=== PATIENT | female | born 1970 | race Caucasian/White ===

== ENCOUNTER → 2019-07-31 | Outpatient (CLI) | payer BC | END | disposition home or self-care (01) | LOC: US 07:50 | PROVIDERS: ATTEND Family Medicine | DX: K76.0 Fatty (change of) liver, not elsewhere classified (principal) | CPT/HCPCS: 76700 ==

== ENCOUNTER → 2019-08-04 | Outpatient (CLI) | payer BC ==
[2019-08-04 08:52] LABS: BASOPHILS % 0.6 % (0.0-2.0); EOSINOPHILS % 1.5 % (0.0-5.0); HEMATOCRIT. 43.2 % (36.0-48.0); HEMOGLOBIN. 14.6 g/dL (12.0-16.0); LYMPHOCYTES % 24.9 % (20.0-50.0); MEAN CORPUSCULAR HEMOGLOBIN 29.2 pg (28.0-32.0); MEAN CORPUSCULAR VOLUME 86.5 fL (81.0-99.0); MEAN PLATELET VOLUME 8.8 fl (7.4-10.4); MONOCYTES % 5.3 % (2.0-8.0); NEUTROPHILS % 67.7 % (40.0-76.0); PLATELET 265 x1000/uL (130-400); RED CELL DISTRIBUTION WIDTH 13.5 % (11.6-14.6)
[2019-08-04 09:09] LABS: CHLORIDE 107 mEq/L (98-107)
[2019-08-04 09:13] LABS: GAMMA GLUTAMYL TRANSPEPTIDASE 32 IU/L (7-32)
[2019-08-04 09:14] LABS: AMYLASE 60 IU/L (25-115)
[2019-08-04 09:16] LABS: LDL CHOLESTEROL 131 mg/dL (5-100)
[2019-08-04 09:17] LABS: HDL CHOLESTEROL 43 mg/dL (40-59)
[2019-08-04 09:19] LABS: T4 FREE 0.99 ng/dL (0.76-1.46)
[2019-08-04 09:32] LABS: FOLIC ACID (FOLATE) SERUM 16.2 ng/mL (>5.38)
== END | disposition home or self-care (01) ==
LOC: LAB 08:28
PROVIDERS: ATTEND Family Medicine
DX: E78.5 Hyperlipidemia, unspecified (principal); R10.10 Upper abdominal pain, unspecified; R53.83 Other fatigue; E55.9 Vitamin D deficiency, unspecified
CPT/HCPCS: 36415; 80053; 80061; 82150; 82306; 82607; 82746; 82977; 83036; 84439; 84443; 84481; 85025

== ENCOUNTER → 2019-10-01 | Outpatient (CLI) | payer BC ==
[2019-10-01 11:45] LABS: VITAMIN B12 SERUM 547 pg/mL (211-911)
[2019-10-03 09:09] LABS: HBSAG SCREEN Negative (Negative); HEPATITIS A ANTIBODY TOTAL Positive (Negative); VITAMIN D 25-OH 26.5 ng/mL (30.0-100.0)
[2019-10-03 15:09] LABS: ANTI-NUCLEAR ANTIBODIES DIRECT Negative (Negative)
[2019-10-05 18:11] LABS: HEPATITIS B SURFACE AB < 3.1 mIU/mL
== END | disposition home or self-care (01) ==
LOC: LAB 08:47
PROVIDERS: ATTEND Internal Medicine Gastroenterology
DX: K21.9 Gastro-esophageal reflux disease without esophagitis (principal)
CPT/HCPCS: 36415; 82306; 82607; 82947; 86038; 86301; 86706; 86708; 86803; 87340

== ENCOUNTER → 2021-05-12 | Outpatient (CLI) | payer BC ==
[2021-05-12 10:14] LABS: BASOPHILS % 0.7 % (0.0-2.0); EOSINOPHILS % 2.4 % (0.0-5.0); HEMATOCRIT. 44.7 % (36.0-48.0); HEMOGLOBIN. 14.7 g/dL (12.0-16.0); MEAN CORPUSCULAR VOLUME 85.2 fL (81.0-99.0); MEAN PLATELET VOLUME 9.2 fl (7.4-10.4); MONOCYTES % 5.6 % (2.0-8.0); NEUTROPHILS % 63.3 % (40.0-76.0); PLATELET 243 x1000/uL (130-400); RED BLOOD CELL COUNT 5.25 mill/uL (4.2-5.4); RED CELL DISTRIBUTION WIDTH 13.3 % (11.6-14.6)
[2021-05-12 10:16] LABS: CLARITY URINE CLEAR (CLEAR); COLOR URINE YELLOW (YELLOW); KETONES URINE NEGATIVE (NEGATIVE); LEUKOCYTE ESTERASE URINE TRACE (NEGATIVE); NITRITE URINE NEGATIVE (NEGATIVE); OCCULT BLOOD URINE 1+ (NEGATIVE); PROTEIN URINE NEGATIVE (NEGATIVE); UROBILINOGEN URINE 0.2 E.U./dL (0.2-1.0)
[2021-05-12 10:29] LABS: CHLORIDE 105 mEq/L (98-107)
[2021-05-12 10:36] LABS: LDL CHOLESTEROL 133 mg/dL (5-100)
[2021-05-12 10:38] LABS: HDL CHOLESTEROL 47 mg/dL (40-59); T4 FREE 0.93 ng/dL (0.76-1.46)
[2021-05-12 10:55] LABS: VITAMIN B12 SERUM 562 pg/mL (211-911)
[2021-05-13 04:07] LABS: VITAMIN D 25-OH 17.8 ng/mL (30.0-100.0)
== END | disposition home or self-care (01) ==
LOC: LAB 09:40
PROVIDERS: ATTEND Family Medicine
DX: Z00.00 Encounter for general adult medical examination without abnormal findings (principal)
CPT/HCPCS: 36415; 80053; 80061; 81003; 82306; 82607; 83036; 84439; 84443; 84481; 85025; 86376

== ENCOUNTER → 2021-05-23 | Outpatient (CLI) | payer BC | END | disposition home or self-care (01) | LOC: RAD 13:11 | PROVIDERS: ATTEND Family Medicine | DX: M54.2 Cervicalgia (principal); M47.812 Spondylosis without myelopathy or radiculopathy, cervical region | CPT/HCPCS: 72040 ==

== ENCOUNTER → 2021-06-21 | Outpatient (CLI) | payer BC | END | disposition home or self-care (01) | LOC: MAMMO 12:37 | PROVIDERS: ATTEND Family Medicine | DX: Z12.31 Encounter for screening mammogram for malignant neoplasm of breast (principal); N63.0 Unspecified lump in unspecified breast | CPT/HCPCS: 77067 ==

== ENCOUNTER → 2021-12-06 | Outpatient (CLI) | payer BC ==
[2021-12-06 11:31] LABS: CHLORIDE 105 mEq/L (98-107)
[2021-12-06 11:38] LABS: AMYLASE 56 IU/L (25-115); GAMMA GLUTAMYL TRANSPEPTIDASE 29 IU/L (7-32)
[2021-12-06 11:50] LABS: HEPATITIS B SURFACE AB < 3.1 mIU/mL
[2021-12-06 12:00] LABS: HEPATITIS B SURFACE ANTIGEN NEGATIVE
[2021-12-07 04:09] LABS: HEPATITIS A ANTIBODY TOTAL Positive (Negative); VITAMIN D 25-OH 33.2 ng/mL (30.0-100.0)
== END | disposition home or self-care (01) ==
LOC: LAB 09:45
PROVIDERS: ATTEND Internal Medicine Gastroenterology
DX: K21.9 Gastro-esophageal reflux disease without esophagitis (principal)
CPT/HCPCS: 36415; 80053; 82150; 82306; 82977; 83036; 86706; 86708; 86803; 87340

== ENCOUNTER → 2021-12-06 | Outpatient (CLI) | payer BC | END | disposition home or self-care (01) | LOC: RAD 09:57 | PROVIDERS: ATTEND Family Medicine | DX: R76.11 Nonspecific reaction to tuberculin skin test without active tuberculosis (principal) | CPT/HCPCS: 71046 ==

== ENCOUNTER → 2022-02-01 | Outpatient (CLI) | payer BC | END | disposition home or self-care (01) | LOC: US 08:36 | PROVIDERS: ATTEND Internal Medicine Gastroenterology | DX: R16.0 Hepatomegaly, not elsewhere classified (principal); R79.89 Other specified abnormal findings of blood chemistry; K76.0 Fatty (change of) liver, not elsewhere classified | CPT/HCPCS: 76700 ==

== ENCOUNTER → 2023-04-18 | Outpatient (CLI) | payer BC ==
[2023-04-18 08:52] LABS: BASOPHILS % 0.4 % (0.0-2.0); EOSINOPHILS % 1.6 % (0.0-5.0); HEMATOCRIT. 44.5 % (36.0-48.0); HEMOGLOBIN. 14.7 g/dL (12.0-16.0); LYMPHOCYTES % 25.6 % (20.0-50.0); MEAN CORPUSCULAR HEMOGLOBIN 28.3 pg (28.0-32.0); MEAN CORPUSCULAR HGB CONC 33.2 g/dL (31.0-37.0); MEAN CORPUSCULAR VOLUME 85.5 fL (81.0-99.0); MEAN PLATELET VOLUME 9.3 fl (7.4-10.4); MONOCYTES % 6.6 % (2.0-8.0); NEUTROPHILS % 65.8 % (40.0-76.0); PLATELET 262 x1000/uL (130-400); RED CELL DISTRIBUTION WIDTH 14.4 % (11.6-14.6); WHITE BLOOD COUNT 8.8 x1000/uL (4.5-11.0)
[2023-04-18 11:36] LABS: ALANINE AMINOTRANSFERASE 50 IU/L (10-49); ALBUMIN 4.5 g/dL (3.2-4.8); ASPARTATE AMINOTRANSFERASE 55 IU/L (<34); BILIRUBIN TOTAL 0.8 mg/dL (0.1-1.0); CALCIUM 9.6 mg/dL (8.7-10.4); CARBON DIOXIDE 20 mEq/L (21-32); CHLORIDE 105 mEq/L (98-107); CHOLESTEROL 173 mg/dL (<200); CREATININE 0.8 mg/dL (0.6-1.0); GLUCOSE 117 mg/dL (70-105); HDL CHOLESTEROL 36 mg/dL (>65); LDL CHOLESTEROL 146 mg/dL (5-100); PROTEIN TOTAL 8.1 g/dL (6.0-8.3); SODIUM 137 mEq/L (136-145); T4 FREE 1.04 ng/dL (0.89-1.76); THYROID STIMULATING HORMONE 2.16 uIU/mL (0.55-4.78); TRIGLYCERIDE 169 mg/dL (0-150); UREA NITROGEN BLOOD 10 mg/dL (9-23)
[2023-04-18 12:14] LABS: CLARITY URINE CLOUDY (CLEAR); COLOR URINE YELLOW (YELLOW); GLUCOSE URINE NEGATIVE (NEGATIVE); KETONES URINE NEGATIVE (NEGATIVE); LEUKOCYTE ESTERASE URINE 1+ (NEGATIVE); NITRITE URINE NEGATIVE (NEGATIVE); OCCULT BLOOD URINE NEGATIVE (NEGATIVE); PH URINE 6.5 (4.5-8.0); PROTEIN URINE NEGATIVE (NEGATIVE); SPECIFIC GRAVITY URINE 1.021 (1.005-1.030); UROBILINOGEN URINE 0.2 E.U./dL (0.2-1.0)
[2023-04-18 13:33] LABS: MUCUS URINE 2+ /lpf (< = 2+); SQUAMOUS EPITHELIAL CELL URINE 2+ /lpf (RARE/1+)
[2023-04-18 13:35] LABS: BACTERIA URINE 3+; RBC URINE NONE SEEN /hpf (0-2)
== END | disposition home or self-care (01) ==
LOC: LAB 07:48
PROVIDERS: ATTEND Internal Medicine Nephrology
DX: Z00.01 Encounter for general adult medical examination with abnormal findings (principal); I10 Essential (primary) hypertension; E55.9 Vitamin D deficiency, unspecified; D64.9 Anemia, unspecified; E03.9 Hypothyroidism, unspecified; E66.01 Morbid (severe) obesity due to excess calories; E11.29 Type 2 diabetes mellitus with other diabetic kidney complication; E78.00 Pure hypercholesterolemia, unspecified
CPT/HCPCS: 36415; 80053; 80061; 81003; 82306; 82570; 83036; 84156; 84439; 84443; 85025

== ENCOUNTER → 2023-07-04 | Outpatient (CLI) | payer BC | END | disposition home or self-care (01) | LOC: US 13:51 | PROVIDERS: ATTEND Obstetrics & Gynecology Obstetrics | DX: D25.9 Leiomyoma of uterus, unspecified (principal); N85.2 Hypertrophy of uterus | CPT/HCPCS: 76830; 76856 ==

== ENCOUNTER → 2023-07-04 | Outpatient (CLI) | payer BC | END | disposition home or self-care (01) | LOC: MAMMO 12:51 | PROVIDERS: ATTEND Internal Medicine Nephrology | DX: Z12.31 Encounter for screening mammogram for malignant neoplasm of breast (principal) | CPT/HCPCS: 77063; 77067 ==

== ENCOUNTER → 2023-08-13 | Outpatient (CLI) | payer BC | END | disposition home or self-care (01) | LOC: US 16:29 | PROVIDERS: ATTEND Obstetrics & Gynecology Obstetrics | DX: D25.9 Leiomyoma of uterus, unspecified (principal); N84.0 Polyp of corpus uteri | CPT/HCPCS: 76830; 76856; Z7610 ==

== ENCOUNTER → 2023-09-11 | Outpatient (CLI) | payer BC ==
[2023-09-11 11:32] LABS: CLARITY URINE CLOUDY (CLEAR); COLOR URINE YELLOW (YELLOW); GLUCOSE URINE NEGATIVE (NEGATIVE); KETONES URINE NEGATIVE (NEGATIVE); LEUKOCYTE ESTERASE URINE 2+ (NEGATIVE); NITRITE URINE NEGATIVE (NEGATIVE); OCCULT BLOOD URINE NEGATIVE (NEGATIVE); PH URINE 6.5 (4.5-8.0); PROTEIN URINE TRACE (NEGATIVE); SPECIFIC GRAVITY URINE 1.024 (1.005-1.030)
[2023-09-11 11:38] LABS: BASOPHILS % 0.8 % (0.0-2.0); EOSINOPHILS % 2.5 % (0.0-5.0); HEMATOCRIT. 42.7 % (36.0-48.0); HEMOGLOBIN. 14.1 g/dL (12.0-16.0); MEAN CORPUSCULAR HEMOGLOBIN 28.2 pg (28.0-32.0); MEAN CORPUSCULAR HGB CONC 33.1 g/dL (31.0-37.0); MEAN CORPUSCULAR VOLUME 85.2 fL (81.0-99.0); MEAN PLATELET VOLUME 9.2 fl (7.4-10.4); NEUTROPHILS % 63.7 % (40.0-76.0); PLATELET 255 x1000/uL (130-400); RED BLOOD CELL COUNT 5.01 mill/uL (4.2-5.4); RED CELL DISTRIBUTION WIDTH 14.3 % (11.6-14.6); WHITE BLOOD COUNT 7.9 x1000/uL (4.5-11.0)
[2023-09-11 11:46] LABS: CHLORIDE 107 mEq/L (98-107); POTASSIUM 3.8 mEq/L (3.5-5.1); SODIUM 138 mEq/L (136-145)
[2023-09-11 11:47] LABS: CALCIUM 9.1 mg/dL (8.7-10.4); CARBON DIOXIDE 23 mEq/L (21-32)
[2023-09-11 11:51] LABS: SQUAMOUS EPITHELIAL CELL URINE 2+ /lpf (RARE/1+)
[2023-09-11 11:52] LABS: CREATININE 0.8 mg/dL (0.6-1.0); GLUCOSE 103 mg/dL (70-105); TRIGLYCERIDE 178 mg/dL (0-150); UREA NITROGEN BLOOD 10 mg/dL (9-23)
[2023-09-11 11:53] LABS: LDL CHOLESTEROL 144 mg/dL (5-100)
[2023-09-11 11:54] LABS: CHOLESTEROL 214 mg/dL (<200); HDL CHOLESTEROL 46 mg/dL (>65)
[2023-09-11 11:56] LABS: BACTERIA URINE 3+; WBC URINE 25-50 /hpf (0-2)
[2023-09-11 11:57] LABS: T4 FREE 0.97 ng/dL (0.89-1.76); THYROID STIMULATING HORMONE 1.04 uIU/mL (0.55-4.78)
[2023-09-12 09:10] LABS: ESTRADIOL 55.1 pg/mL (.); FOLICLE STIMULATING HORMONE 15.1 mIU/mL (.); LUTEINIZING HORMONE 8.9 mIU/mL (.)
== END | disposition home or self-care (01) ==
LOC: LAB 10:49
PROVIDERS: ATTEND Internal Medicine Nephrology
DX: Z00.01 Encounter for general adult medical examination with abnormal findings (principal)
CPT/HCPCS: 36415; 80048; 80061; 81003; 82670; 83001; 83002; 83036; 84402; 84439; 84443; 84481; 85025; 86800